=== PATIENT | male | born 1995 | race American Indian/Alaskan Native ===

== ENCOUNTER 2019-09-24 08:09 | Emergency (ER) | payer SELFPAY ==
[2019-09-24] MEDS ORDERED: levETIRAcetam 500 MG TAB PO ONE (09:12)
[2019-09-24] MEDS ORDERED: LORazepam 1 MG TAB PO ONE (09:13)
--- NOTE | 2019-09-24 09:40 | Emergency Department Report ---
ED General Adult HPI - General Chief complaint: Seizure Stated complaint: SEIZURES Time Seen by Provider: 09/24/19 09:01 Source: patient, family Mode of arrival: Ambulatory Limitations: No Limitations - History of Present Illness Initial comments: The patient presents to the emergency department the chief complaint of seizures. Patient had 3 seizures within the last 12 hours. Patient has a history of seizures and states his last seizure was approximately one year ago. Patient takes carbamazepine and zonisamide for his seizures and has been out of his meds for 2 days. She states she is back at his baseline and has no complaints. The patient states he recently moved to the [place] and has not established a relationship with a physician here -: Sudden Severity scale (0 -10): 0 Consistency: now resolved Improves with: none Worsens with: none Associated Symptoms: denies other symptoms Treatments Prior to Arrival: none - Related Data Home Medications Medication Instructions Recorded Confirmed Last Taken Carbamazepine 400 mg PO DAILY 09/24/19 09/24/19 09/22/19 Zonisamide 200 mg PO DAILY 09/24/19 09/24/19 09/21/19 Zonisamide 300 mg PO HS 09/24/19 09/24/19 09/22/19 carBAMazepine [Carbamazepine] 600 mg PO HS 09/24/19 09/24/19 09/22/19 Previous Rx's Medication Instructions Recorded Last Taken Type Zonisamide 100 mg PO BID #150 capsule 09/24/19 Unknown Rx Zonisamide (Nf) [Zonegran (Nf)] 100 mg PO BID #150 capsule 09/24/19 Unknown Rx carBAMazepine [Carbamazepine] 200 mg PO BID #150 tablet 09/24/19 Unknown Rx Allergies Allergy/AdvReac Type Severity Reaction Status Date / Time No Known Allergies Allergy Unverified 09/24/19 08:17 ED Review of Systems ROS: Stated complaint: SEIZURES Other details as noted in HPI Comment: All other systems reviewed and negative Constitutional: denies: chills, fever Eyes: denies: eye pain, eye discharge, vision change ENT: denies: ear pain, throat pain Respiratory: denies: cough, shortness of breath, wheezing Cardiovascular: denies: chest pain, palpitations Endocrine: no symptoms reported Gastrointestinal: denies: abdominal pain, nausea, diarrhea Genitourinary: denies: urgency, dysuria Musculoskeletal: denies: back pain, joint swelling, arthralgia Skin: denies: rash, lesions Neurological: denies: headache, weakness, paresthesias Psychiatric: denies: anxiety, depression Hematological/Lymphatic: denies: easy bleeding, easy bruising ED Past Medical Hx - Past Medical History Previous Medical History?: Yes Hx Seizures: Yes Additional medical history: Staph infection manish legs - Surgical History Past Surgical History?: Yes Additional Surgical History: Right and left leg surgery 2009 - Social History Smoking Status: Never Smoker Substance Use Type: None - Medications Home Medications: Home Medications Medication Instructions Recorded Confirmed Last Taken Type Carbamazepine 400 mg PO DAILY 09/24/19 09/24/19 09/22/19 History Zonisamide 100 mg PO BID #150 capsule 09/24/19 Unknown Rx Zonisamide 200 mg PO DAILY 09/24/19 09/24/19 09/21/19 History Zonisamide 300 mg PO HS 09/24/19 09/24/19 09/22/19 History Zonisamide (Nf) [Zonegran (Nf)] 100 mg PO BID #150 capsule 09/24/19 Unknown Rx carBAMazepine [Carbamazepine] 200 mg PO BID #150 tablet 09/24/19 Unknown Rx carBAMazepine [Carbamazepine] 600 mg PO HS 09/24/19 09/24/19 09/22/19 History ED Physical Exam - General Limitations: No Limitations General appearance: alert, in no apparent distress - Head Head exam: Present: atraumatic, normocephalic - Eye Eye exam: Present: normal appearance, PERRL, EOMI - ENT ENT exam: Present: mucous membranes moist - Neck Neck exam: Present: normal inspection - Respiratory Respiratory exam: Present: normal lung sounds bilaterally. Absent: respiratory distress - Cardiovascular Cardiovascular Exam: Present: regular rate, normal rhythm. Absent: systolic murmur, diastolic murmur, rubs, gallop - GI/Abdominal GI/Abdominal exam: Present: soft, normal bowel sounds. Absent: distended, tenderness - Rectal Rectal exam: Present: deferred - Extremities Exam Extremities exam: Present: normal inspection - Back Exam Back exam: Present: normal inspection - Neurological Exam Neurological exam: Present: alert, oriented X3, CN II-XII intact. Absent: motor sensory deficit - Psychiatric Psychiatric exam: Present: normal affect, normal mood - Skin Skin exam: Present: warm, dry, intact, normal color. Absent: rash ED Course Vital Signs 09/24/19 09/24/19 08:21 09:16 Temperature 97.7 F 98.2 F Pulse Rate 102 H 81 Respiratory 20 19 Rate Blood Pressure 145/88 Blood Pressure 127/63 [Left] O2 Sat by Pulse 100 99 Oximetry ED Medical Decision Making - Medical Decision Making Discussed plan of care with patient Patient states he takes Carbamezepine 200 mg 2 tabs am 3 tabs QHS and Zonisamide 100 mg 2 tabs am 3 tabs qhs Critical care attestation.: If time is entered above; I have spent that time in minutes in the direct care of this critically ill patient, excluding procedure time. ED Disposition Clinical Impression: Seizure Disposition: DC-01 TO HOME OR SELFCARE Is pt being admited?: No Does the pt Need Aspirin: No Condition: Stable Instructions: Recurrent Seizures Adult (ED) Additional Instructions: return if worse Prescriptions: carBAMazepine [Carbamazepine] 200 mg PO BID #150 tablet Zonisamide (Nf) [Zonegran (Nf)] 100 mg PO BID #150 capsule Zonisamide 100 mg PO BID #150 capsule Referrals: PRIMARY CARE, [Primary Care Provider] - 3-5 Days JOHNNY ANN MD [Staff Physician] - 3-5 Days [facility] [Provider Group] - 3-5 Days [facility] [Provider Group] - 3-5 Days [facility] [Outside] - 3-5 Days [facility] [Provider Group] - 3-5 Days Time of Disposition: 09:44
[2019-09-24 10:06] VITALS: BP 133/72
== END 2019-09-24 10:03 | disposition home or self-care (01) ==
LOC: ED 08:09
DX: R56.9 Unspecified convulsions (principal); Z79.899 Other long term (current) drug therapy
CPT/HCPCS: 82962

== ENCOUNTER 2019-12-12 16:46 | Emergency (ER) | payer SELFPAY ==
[2019-12-12 17:19] VITALS: BP 145/77
--- NOTE | 2019-12-12 17:26 | Emergency Department Report ---
Chief Complaint: Medical Clearance Stated Complaint: MED REFILL Time Seen by Provider: 12/12/19 17:22 - HPI History of Present Illness: 24 y o male with pmh of epilepsy ran out of his meds 2 days ago and unable to fo follow-up with his primary care doctor. Patient states that he has hadb no episode of epilepsy. He denies headache, fever, blurry vision or any other symptoms. - ROS Review of Systems: As noted in HPI - Exam Vital Signs: Vital Signs 12/12/19 17:12 Temperature 98.1 F Pulse Rate 116 H Respiratory 16 Rate Blood Pressure 145/77 O2 Sat by Pulse 100 Oximetry Physical Exam: GENERAL: Alert and oriented x3, no apparent distress, Normal Gait, atraumatic. HEAD: Head is normocephalic and a-traumatic. EYES: Extra ocular muscles are intact. Pupils are equal, round, and reactive to light and accommodation. SKIN: Warm and dry, No lesions, No ulceration or induration present. MSE screening note: Focused history and physical exam performed. Due to findings the following was ordered: ED Disposition for MSE Clinical Impression: Medication refill Disposition: Z- MED SCREENING EXAM-LEFT Is pt being admited?: No Does the pt Need Aspirin: No Condition: Stable Additional Instructions: follow up with neurologist Take meds as prescribed. Prescriptions: carBAMazepine [Carbamazepine] 200 mg PO BID #150 tablet Zonisamide (Nf) [Zonegran (Nf)] 100 mg PO BID #150 capsule Referrals: [facility] [Outside] - 3-5 Days [facility] [Outside] - 3-5 Days [facility] [Outside] - 3-5 Days [facility] [Outside] - 3-5 Days Forms: Work/School Release Form(ED) Time of Disposition: 17:27
== END 2019-12-12 17:30 | disposition left against medical advice (07) ==
LOC: ED 16:46
DX: G40.909 Epilepsy, unspecified, not intractable, without status epilepticus (principal); Z76.0 Encounter for issue of repeat prescription
CPT/HCPCS: 99281

== ENCOUNTER 2020-03-12 15:08 | Emergency (ER) | payer SELFPAY ==
[2020-03-12 17:27] VITALS: BP 142/85
== END 2020-03-12 18:21 | disposition home or self-care (01) ==
LOC: ED 15:08
DX: R56.9 Unspecified convulsions (principal)
CPT/HCPCS: 96374; 99283; J2060